=== PATIENT | male | born 1940 | race Caucasian/White ===

== ENCOUNTER 2019-11-01 17:15 | Emergency (ER) | payer MEDICARE, OTHER ==
[2019-11-01 17:55] VITALS: O2SAT 97
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
[2019-11-01] MEDS ORDERED: Cyclobenzaprine 10 MG PO ONE (19:17)
[2019-11-01] MEDS ORDERED: Cyclobenzaprine 10 MG ONE (19:21)
[2019-11-01 19:50] VITALS: BP 148/82; PULSE 82
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
== END 2019-11-01 19:49 | disposition home or self-care (01) ==
LOC: ED 17:15
DX: S16.1XXA Strain of muscle, fascia and tendon at neck level, initial encounter (principal); V89.2XXA Person injured in unspecified motor-vehicle accident, traffic, initial encounter
CPT/HCPCS: 70450; 71045; 72125; 99284; A9270-GY

== ENCOUNTER 2023-02-24 21:18 | Emergency (ER) | payer MEDICARE, OTHER ==
[2023-02-24 21:23] VITALS: BP 205/82; RESP 18; TEMP 97.3; O2SAT 100
[2023-02-24] MEDS ORDERED: BABY ASPIRIN 81 MG CHEW PO ONE (21:28)
[2023-02-24] MEDS ORDERED: Nitrostat 0.4 MG (ED) SL ONE ×2 (21:28→21:37)
[2023-02-24] MEDS ORDERED: Sodium Chloride 0.9% 1000 ML 1,000 ML IV SCH (21:30)
[2023-02-24 21:35] VITALS: PULSE 70
[2023-02-24] MEDS ORDERED: BABY ASPIRIN 81 MG CHEW ONE (21:36)
[2023-02-24] MEDS ORDERED: Sodium Chloride 0.9% 1000 ML 1,000 ML ONE (21:37)
--- NOTE | 2023-02-24 21:46 | ERPHSYRPT ---
- History of Present Illness Time Seen by Provider: 02/24/23 21:43 Historian: patient, family Exam Limitations: no limitations Patient Subjective Stated Complaint: indigestion/chest pain Triage Nursing Assessment: pt ambulated into ER without diff, son at bedside. Pt c/o pain across the diaphragm area which started around 7:15 pm. Pt denies any actual chest pain or any pain up into the neck or arms. Pt has hx of gerd but states, "this feels different". Pt has some slight nausea with the episode. Pt rates pain a 1 on arrival but was pain free by the end of triage. Lungs clear, heart tones reg. No edema noted. Physician History: Pt c/o pain across the diaphragm area which started around 7:15 pm. Pt denies any actual chest pain or any pain up into the neck or arms. Pt has hx of gerd but states, "this feels different". Pt has some slight nausea with the episode. Pt rates pain a 1 on arrival but was pain free by the end of triage. Patient had stent placement 2 years ago. Recent Echo showed leaky heart valves. Timing/Duration: today Activities at Onset: none Location: substernal Chest Pain Radiation: no radiation Severity of Pain-Max: mild Severity of Pain-Current: none Modifying Factors: Improves With: nothing Associated Symptoms: denies symptoms Prior Chest Pain/Cardiac Workup: cardiac cath, echocardiography, recently seen/treated Nitro Today/Relief: no nitro taken today Aspirin Treatment Today: no aspirin today Body Map: 1 - pain Allergies/Adverse Reactions: Penicillins Allergy (Verified 02/24/23 21:35) tetanus and diphtheria toxoids [tetanus & diphtheria toxoids] Allergy (Verified 02/24/23 21:35) Home Medications: Clopidogrel Bisulfate [Clopidogrel] 75 mg PO DAILY 11/01/19 [History] Enalapril Maleate [Vasotec] 20 mg PO BID 11/01/19 [History] Pantoprazole 20 mg [Protonix 20MG Tablet] 10 mg PO DAILY 11/01/19 [History] Rosuvastatin Calcium 20 mg PO HS 11/01/19 [History] Sildenafil Citrate [Revatio] 20 mg PO UD 11/01/19 [History] Nebivolol HCl 5 MG [Bystolic 5 MG] 5 mg PO DAILY 02/24/23 [History] Hx Tetanus, Diphtheria Vaccination/Date Given: No (allergic) Hx Influenza Vaccination/Date Given: Yes Hx Pneumococcal Vaccination/Date Given: Yes Immunizations Up to Date: Yes Travel Risk - International Travel Have you traveled outside of the country in past 3 weeks: No - Coronavirus Screening Are you exhibiting any of the following symptoms?: No Close contact with a COVID-19 positive Pt in past 14-21 Days: No - Vaccine Status Have you recieved a Covid-19 vaccination: Yes 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 - Review of Systems Constitutional: No Fever, No Chills Eyes: No Symptoms Ears, Nose, & Throat: No Symptoms Respiratory: No Cough, No Dyspnea Cardiac: Chest Pain, No Edema, No Syncope Abdominal/Gastrointestinal: No Abdominal Pain, No Nausea, No Vomiting, No Diarrhea Genitourinary Symptoms: No Dysuria Musculoskeletal: No Back Pain, No Neck Pain Skin: No Rash Neurological: No Dizziness, No Focal Weakness, No Sensory Changes Psychological: No Symptoms Endocrine: No Symptoms All Other Systems: Reviewed and Negative - Past Medical History Pertinent Past Medical History: Yes Neurological History: No Pertinent History ENT History: No Pertinent History Cardiac History: High Cholesterol, Hypertension Respiratory History: No Pertinent History Endocrine Medical History: No Pertinent History Musculoskeletal History: No Pertinent History GI Medical History: GERD History: No Pertinent History Psycho-Social History: No Pertinent History Male Reproductive Disorders: No Pertinent History Other Medical History: low iron - Past Surgical History Past Surgical History: Yes Neuro Surgical History: No Pertinent History Cardiac: Cardiac Catheterization, Cardiac Stent Respiratory: No Pertinent History Gastrointestinal: No Pertinent History Male Surgical History: Prostate Surgery Other Surgical History: oral surgery - Social History Smoking Status: Former smoker Exposure to second hand smoke: No Drug Use: none Patient Lives Alone: No - Nursing Vital Signs Nursing Vital Signs: Initial Vital Signs Pulse Rate 66 02/24/23 21:21 Respiratory Rate 15 02/24/23 21:21 Blood Pressure 205/82 02/24/23 21:21 O2 Sat by Pulse Oximetry 100 02/24/23 21:21 Pain Scale Pain Intensity 1 - Physical Exam SpO2: 100 - Course Nursing assessment & vital signs reviewed: Yes EKG Interpreted by Me: Sinus Rhythm, Non-specific ST Changes Rhythm Strip: Normal Sinus Rhythm - Radiology Exams Chest X-ray Interpretation: Reviewed by me, Negative, No Pneumonia Ordered Tests: Active Orders 24 hr Category Date Time Status Librarian Head STAT Care 02/24/23 21:29 Active EKG-ER Only STAT Care 02/24/23 21:28 Active CHEST 1 VIEW (PORTABLE) Stat Exams 02/24/23 21:28 Taken CBC W DIFF Stat Lab 02/24/23 21:50 Completed CMP Stat Lab 02/24/23 21:50 Completed NT PRO BNPII Stat Lab 02/24/23 21:50 Completed TROPONIN Q4H Lab 02/24/23 21:50 Completed TROPONIN Q4H Lab 02/25/23 01:30 Ordered TROPONIN Q4H Lab 02/25/23 05:30 Ordered Medication Summary Generic Name Dose Route Start Last Admin Trade Name Freq PRN Reason Stop Dose Admin Sodium Chloride 1,000 mls @ 100 mls/hr 02/24/23 21:30 02/24/23 21:39 Sodium Chloride 0.9% 1000 Ml IV 03/26/23 21:29 100 mls/hr .Q10H JACK Administration Discontinued Medications Generic Name Dose Route Start Last Admin Trade Name Freq PRN Reason Stop Dose Admin Aspirin 81 mg 02/24/23 21:28 02/24/23 21:40 Aspirin 81 Mg Tab.Chew PO 02/24/23 21:29 81 mg STAT ONE Administration Aspirin Confirm 02/24/23 21:36 Aspirin 81 Mg Tab.Chew Administered 02/24/23 21:37 Dose 81 mg .ROUTE .STK-MED ONE Nitroglycerin 0.4 mg 02/24/23 21:28 02/24/23 21:41 Nitroglycerin 0.4 Mg (Ed) 0.4 Mg Tab.Subl SL 02/24/23 21:29 0.4 mg STAT ONE Administration Nitroglycerin Confirm 02/24/23 21:37 Nitroglycerin 0.4 Mg (Ed) 0.4 Mg Tab.Subl Administered 02/24/23 21:38 Dose 0.4 mg SL .STK-MED ONE Lab/Rad Data: Laboratory Result Diagrams 02/24/23 21:50 02/24/23 21:50 Laboratory Results 02/24/23 02/24/23 02/24/23 Range/Units 21:50 21:50 21:50 WBC 7.5 (4.0-10.5) x10^3/uL RBC 4.28 (4.1-5.6) x10^6/uL Hgb 13.1 (12.5-18.0) g/dL Hct 39.8 L (42-50) % MCV 93.0 (78-100) fL MCH 30.6 (26-32) pg MCHC 32.9 (32-36) g/dL RDW 13.2 (11.5-14.0) % Plt Count 232 (150-450) x10^3/uL MPV 8.8 (7.5-11.0) fL Gran % 67.7 H (36.0-66.0) % Immature Gran % (Auto) 0.3 (0.00-0.4) % Nucleat RBC Rel Count 0.0 (0.00-0.1) % Eos # (Auto) 0.26 (0-0.5) x10^3/uL Immature Gran # (Auto) 0.02 (0.00-0.03) x10^3u/L Absolute Lymphs (auto) 1.60 (1.0-4.6) x10^3/uL Absolute Monos (auto) 0.49 (0.0-1.3) x10^3/uL Absolute Nucleated RBC 0.00 (0.00-0.01) x10^3u/L Lymphocytes % 21.3 L (24.0-44.0) % Monocytes % 6.5 (0.0-12.0) % Eosinophils % 3.5 (0.00-5.0) % Basophils % 0.7 (0.0-0.4) % Absolute Granulocytes 5.09 (1.4-6.9) x10^3/uL Basophils # 0.05 (0-0.4) x10^3/uL Sodium 139 (137-145) mmol/L Potassium 4.5 (3.5-5.1) mmol/L Chloride 106 (98-107) mmol/L Carbon Dioxide 25 (22-30) mmol/L Anion Gap 12.9 (5-15) MEQ/L BUN 21 H (9-20) mg/dL Creatinine 0.98 (0.66-1.25) mg/dL Estimated GFR 78.0 ML/MIN Glucose 116 H (74-106) mg/dL Calcium 9.6 (8.4-10.2) mg/dL Total Bilirubin 0.50 (0.2-1.3) mg/dL AST 42 (17-59) U/L ALT 28 (0-50) U/L Alkaline Phosphatase 60 (38-126) U/L Troponin I < 0.012 (0.000-0.034) ng/mL NT-Pro-B Natriuret Pep 223 (<300) pg/mL Serum Total Protein 7.8 (6.3-8.2) g/dL Albumin 4.5 (3.5-5.0) g/dL - Progress Progress: improved Air Movement: good Blood Culture(s) Obtained: No Antibiotics given: No Counseled pt/family regarding: lab results, diagnosis, need for follow-up, rad results Medical Desision Making - Independent Historian Additional History obtained from: Spouse, Family - Discussion of managment Reviewed:: Test results, Need for additional workup - Diagnostic Testing Diagnostic test were ordered, analyzed, and reviewed by me: Yes Radiological Interpretation: Interpreted by me, Reviewed by me - Risk of complications Low Risk: Low risk of morbidity from additional dx testing or treatment - Departure Departure Disposition: Home Clinical Impression: Chest pain in adult Hypertension Qualifiers: Hypertension type: primary hypertension Qualified Code(s): I10 - Essential (primary) hypertension Condition: Stable Critical Care Time: No Referrals: LEODAN DOAN MD [Primary Care Provider] - Follow up/PCP as directed Instructions: Chest Pain (DC) Additional Instructions: Discharge/Care Plan MARÍA MORAN was seen on 02/24/23 in the Emergency Room. The patient was counseled regarding Diagnosis,Lab results, Imaging studies, need for follow up and when to return to the Emergency Room. Prescriptions given: Discharge Note I have spoken with the patient and/or caregivers. I have explained the patient's condition, diagnosis and treatment plan based on the information available to me at this time. I have answered the patient's and/or caregiver's questions and addressed any concerns. The patient and/or caregivers have as good understanding of the patient's diagnosis, condition and treatment plan as can be expected at this point. The vital signs have been stable. The patient's condition is stable and appropriate for discharge from the emergency department. The patient will pursue further outpatient evaluation with the primary care physician or other designated or consulting physician as outlined in the discharge instructions. The patient and/or caregivers are agreeable to this plan of care and follow-up instructions have been explained in detail. The patient and/or caregivers have received these instruction. The patient/and or caregivers are aware that any significant change in condition or worsening of symptoms conrad uld prompt an immediate return to this or the closest emergency department or call 911. MARÍA MORAN was seen on 02/24/23 n the Emergency Room. At that time you were treated for an emergent condition, during your visit Laboratory, Radiology and/or other procedures may have been ordered. It is very important that you follow-up with your Primary Care Physician LEODAN DOAN within the next 24-48 hours to review your Emergency Room visit and the final results of testing that was ordered. Some test results such as Urine Cultures, Blood Cultures, and other cultures if ordered will not be finalized for 24-48 hours. If you do not have a Primary Care Provider please call the medical records department at [phone] ext [phone] to obtain a copy of your results or you may sign into our patient portal to obtain these results by visiting us @ [email or web address] and completing the following steps: 1. Click on the Patient Portal link 2. Click the Patient Self Enrollment Link to complete the enrollment form and entering your 3. Once the enrollment form is completed you will receive an email with a temporary ID and password at the email address you provided. 4. Next choose a user name and password. Your user name must be at least 4 characters long and your password must be at least 4 characters long. 5. Choose a security question from the list and provide your answer to the question. If you already have signed into the Health Portal you may access your Health Care Information 25/09 by the following steps: 1. Login to our website @ [email or web address] 2. Enter your original user name and password. FAQS The [facility] Health Portal is an online tool that contains your Lab Results, Rad iology Reports, Visit History, Discharge Instructions and Health Summary Lab and Radiology Results will not be available for 72 hours on the portal. The Portal is a secure site, passwords are encryted and URLs are re-written so they cannot be copied and pasted. You and authorized family members are the only ones who can access your Portal. Also there is a timeout feature that protects your information if you leave the Portal page open. If you have technical difficulty please use the Contact Us link on the page this will allow you to submit any questions you have regarding the Portal or you may contact the Medical Record Department at [phone] ext [phone].
[2023-02-24 21:54] LABS: Absolute Neutrophil Ct (ANC) 5.09 x10^3/uL (1.4-6.9); BASOPHIL % 0.7 % (0.0-0.4); Basophil (Absolute #) 0.05 x10^3/uL (0-0.4); Eosinophil % 3.5 % (0.00-5.0); Eosinophil (Absolute #) 0.26 x10^3/uL (0-0.5); Hematocrit 39.8 % (42-50); Hemoglobin 13.1 g/dL (12.5-18.0); IMMATURE GRAN # 0.02 x10^3u/L (0.00-0.03); IMMATURE GRAN % 0.3 % (0.00-0.4); Lymphocytes % 21.3 % (24.0-44.0); Mean Corpuscular Hemoglobin 30.6 pg (26-32); Mean Corpuscular Hgb Concent. 32.9 g/dL (32-36); Mean Platelet Volume 8.8 fL (7.5-11.0); Monocyte (Absolute #) 0.49 x10^3/uL (0.0-1.3); Monocytes % 6.5 % (0.0-12.0); Neutrophil % 67.7 % (36.0-66.0); Platelet Count 232 x10^3/uL (150-450); Red Blood Count 4.28 x10^6/uL (4.1-5.6); Red Cell Distribution Width 13.2 % (11.5-14.0); White Blood Count 7.5 x10^3/uL (4.0-10.5)
[2023-02-24 22:20] LABS: ALBUMIN 4.5 g/dL (3.5-5.0); ANION GAP 12.9 MEQ/L (5-15); BILIRUBIN,TOTAL 0.5 mg/dL (0.2-1.3); Calcium 9.6 mg/dL (8.4-10.2); Creatinine 1 0.98 mg/dL (0.66-1.25); Potassium 4.5 mmol/L (3.5-5.1); Total Protein 7.8 g/dL (6.3-8.2)
--- NOTE | 2023-02-25 08:46 | XRAY ---
Indication: Chest pain and nausea. Comparison: November 01, 2019 Portable apical lordotic chest remains inflated and clear again with a few incidental tiny calcified granulomas. Heart not enlarged. Bony thorax intact again with mild degenerative changes. Impression: Continued nonacute chest with chronic features.
== END 2023-02-24 22:50 | disposition home or self-care (01) ==
LOC: ED 21:18
DX: R07.9 Chest pain, unspecified (principal); I10 Essential (primary) hypertension; R10.10 Upper abdominal pain, unspecified; E78.5 Hyperlipidemia, unspecified; Z79.02 Long term (current) use of antithrombotics/antiplatelets; Z79.899 Other long term (current) drug therapy
CPT/HCPCS: 36000; 36415; 71045; 80053; 83880; 84484; 85025; 93005; 93041; 99284; A9270-GY

== ENCOUNTER 2024-12-25 17:09 | Emergency (ER) | payer MEDICARE, OTHER ==
[2024-12-25 17:24] VITALS: RESP 16; TEMP 98.1
[2024-12-25] MEDS ORDERED: XYLOCAINE 1% HCL 20 ML MDV ONE (17:28)
[2024-12-25] MEDS: XYLOCAINE 1% HCL 20 ML MDV IJ ONE (17:31)
[2024-12-25 17:32] VITALS: BP 211/84; PULSE 69; O2SAT 97
--- NOTE | 2024-12-25 17:51 | ERPHSYRPT ---
- History of Present Illness Time Seen by Provider: 12/25/24 17:20 Source: patient Patient Subjective Stated Complaint: patient states that he tripped and fell over table and grabbed onto a chain to try to catch self, patient received a cut to left hand middle finger Triage Nursing Assessment: patient presents to ed via private vehicle, patient able to walk into ed without complication, patient alert and oriented x 4, patient skin p/w/d, patient denies hitting head during fall, patient has a small laceration to left hand middle finger measuring 2.3cm with partial skin flap loss, patient has scant amount of sanginous drainage Physician History: Patient comes to the emergency room due to laceration on the left hand middle finger that occurred when he was trying to grab a chain when it was falling. The patient is on Plavix and had some bleeding which stopped. Has minimal Pain. No other injuries Timing/Duration: today Location: hands Allergies/Adverse Reactions: Penicillins Allergy (Verified 12/25/24 17:24) tetanus and diphtheria toxoids [tetanus & diphtheria toxoids] Allergy (Verified 12/25/24 17:24) Home Medications: Clopidogrel Bisulfate [Clopidogrel] 75 mg PO DAILY 11/01/19 [History] Enalapril Maleate [Vasotec] 20 mg PO BID 11/01/19 [History] Pantoprazole 20 mg [Protonix 20MG Tablet] 10 mg PO DAILY 11/01/19 [History] Rosuvastatin Calcium 20 mg PO HS 11/01/19 [History] Sildenafil Citrate [Revatio] 20 mg PO UD 11/01/19 [History] Nebivolol HCl 5 MG [Bystolic 5 MG] 5 mg PO DAILY 02/24/23 [History] Hx Tetanus, Diphtheria Vaccination/Date Given: No (allergic) Hx Influenza Vaccination/Date Given: Yes Hx Pneumococcal Vaccination/Date Given: Yes Travel Risk - International Travel Have you traveled outside of the country in past 3 weeks: No - Emerging Infectious Disease Are you exhibiting symptoms associated with any current EIDs: No - Review of Systems Constitutional: No Fever, No Chills Respiratory: No Cough, No Dyspnea Cardiac: No Chest Pain, No Edema, No Syncope Skin: Other (lac) - Past Medical History Pertinent Past Medical History: Yes Neurological History: No Pertinent History ENT History: No Pertinent History Cardiac History: High Cholesterol, Hypertension Respiratory History: No Pertinent History Endocrine Medical History: No Pertinent History Musculoskeletal History: No Pertinent History GI Medical History: GERD History: No Pertinent History Psycho-Social History: No Pertinent History Male Reproductive Disorders: No Pertinent History Other Medical History: low iron: hx - Past Surgical History Past Surgical History: Yes Neuro Surgical History: No Pertinent History Cardiac: Cardiac Catheterization, Cardiac Stent Respiratory: No Pertinent History Gastrointestinal: No Pertinent History Male Surgical History: Prostate Surgery Other Surgical History: oral surgery - Social History Smoking Status: Never smoker Exposure to second hand smoke: No Drug Use: none - Social Determinants of Health Will the patient participate in the screening: Yes Do you worry about a steady place to live?: No Do you have any problems with any of the following?: No known problems In the past 12 months,have you had to go without utilities?: No Transportation Issues: No Has anyone in your support network made you feel unsafe?: No Have you or anyone in your house had to go w/o enough food: No - Nursing Vital Signs Nursing Vital Signs: Initial Vital Signs Temperature 98.1 F 12/25/24 17:09 Pulse Rate 66 12/25/24 17:09 Respiratory Rate 16 12/25/24 17:09 Blood Pressure 219/101 12/25/24 17:09 O2 Sat by Pulse Oximetry 100 12/25/24 17:09 Pain Scale Pain Intensity 0 - Physical Exam General Appearance: no apparent distress Ears, Nose, Throat Exam: normal ENT inspection Respiratory Exam: normal breath sounds Cardiovascular Exam: regular rate/rhythm Neurologic Exam: alert, oriented x 3 Skin Exam: laceration SpO2: 97 Procedures - Laceration/Wound Repair Left Finger Time of Procedure: 17:30 Wound Location: Left, hand Wound Length (cm): 1.5 Wound's Depth, Shape: superficial Wound Explored: clean Irrigated: Yes Hibiclens Prep: Yes Anesthesia: 1% Lidocaine Volume Anesthetic (ccs): 3 Wound Debrided: minimal Wound Repaired With: sutures Suture Size/Type: 4-0 Number of Sutures: 3 Layer Closure?: No Sterile Dressing Applied?: Yes Splint Applied?: Yes Type of Splint Applied: Finger splint Ordered Tests: Medication Summary Discontinued Medications Generic Name Dose Route Start Last Admin Trade Name Freq PRN Reason Stop Dose Admin Lidocaine HCl 5 ml 12/25/24 17:30 12/25/24 17:31 Lidocaine Hcl 1% 20 Ml Mdv 20 Ml Ml IJ 12/25/24 17:31 5 ml STAT ONE Administration Lidocaine HCl Confirm 12/25/24 17:28 Lidocaine Hcl 1% 20 Ml Mdv 20 Ml Ml Administered 12/25/24 17:29 Dose 1 ml .ROUTE .STK-MED ONE - Departure Departure Disposition: Home Clinical Impression: Finger laceration Qualifiers: Encounter type: initial encounter Finger: middle finger Damage to nail status: without damage Foreign body presence: without foreign body Laterality: left Qualified Code(s): S61.213A - Laceration without foreign body of left middle finger without damage to nail, initial encounter Condition: Good Critical Care Time: No Referrals: LEODAN DOAN MD [Primary Care Provider, [facility]] - Follow up/PCP as directed Instructions: Laceration Repair With Stitches (DC)
== END 2024-12-25 17:59 | disposition home or self-care (01) ==
LOC: ED 17:09
DX: S61.213A Laceration without foreign body of left middle finger without damage to nail, initial encounter (principal); W45.8XXA Other foreign body or object entering through skin, initial encounter; I10 Essential (primary) hypertension; Z79.02 Long term (current) use of antithrombotics/antiplatelets; Z79.899 Other long term (current) drug therapy